=== PATIENT | male | born 1990 | race African-American/Black ===

== ENCOUNTER 2018-01-13 00:01 | Emergency (ER) | payer SELFPAY | END 2018-01-13 00:15 | disposition home or self-care (01) | LOC: ERS 00:01 | DX: S80.812A Abrasion, left lower leg, initial encounter (principal); S80.811A Abrasion, right lower leg, initial encounter; J45.909 Unspecified asthma, uncomplicated; F17.210 Nicotine dependence, cigarettes, uncomplicated; V49.50XA Passenger injured in collision with unspecified motor vehicles in traffic accident, initial encounter | CPT/HCPCS: 99283 ==